=== PATIENT | male | born 2005 | race Caucasian/White ===

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

== ENCOUNTER 2023-06-20 13:43 | Emergency (ER) | payer OTHER, SELFPAY ==
[2023-06-20 13:57] VITALS: BP 120/63; PULSE 93; RESP 16; TEMP 37.3; O2SAT 100
--- NOTE | 2023-06-20 14:06 | ED.GENADULT ---
HPI - General Adult General Chief complaint: Wound/Laceration Stated complaint: Left Hand Pain Time Seen by Provider: 06/20/23 14:00 Source: patient Mode of arrival: ambulatory Limitations: no limitations History of Present Illness HPI narrative: Randell is a 17-year-old male patient presenting to the clinic today for a wound recheck on his right 5th finger. Reports 5 days ago he injured his left 5th finger when he smashed and a trunk. States he did this around 1:00 a.m. in the morning went to [facility]. Three interrupted sutures were placed closing the wound. Tetanus is up-to-date Related Data Home Medications Medication Instructions Recorded Confirmed cephalexin 500 mg capsule 500 mg PO TID 06/20/23 06/20/23 Allergies Allergy/AdvReac Type Severity Reaction Status Date / Time No Known Allergies Allergy Verified 06/20/23 14:08 Review of Systems Review of Systems: Pertinent positives per HPI. Patient denies any fever, chills, rash, headache, visual changes, dizziness, cough, runny nose, sore throat, shortness of breath, chest pain, palpitations, nausea, vomiting, diarrhea, constipation, abdominal pain, or any urinary issues. PMFSH Comments At the time of my signature, I reviewed and agree with the nursing past medical, surgical, social, and family history. There is no relevant family history pertinent to the patient complaint. Exam Narrative: General: Well-developed, well nourished, in no apparent distress Head: Normocephalic, atraumatic. Cardio: Regular rate and rhythm, s1 and s2 normal, no murmur appreciated. Resp: Clear to auscultation bilaterally, no rhonchi, rales, wheezing or rubs. Musculoskeletal: No deformity, 3 sutures to the volar aspect of the right 5th finger, no redness, swelling, or drainage noted, non-tender to palpation, grossly normal range of motion, muscle strength strong and equal, peripheral pulse strong, no edema, no cyanosis, normal gait and station Course Course Emergency Course: Portions of this record may have been created with voice recognition software. Level of Care: Express Care Visit Vital Signs Vital signs: Vital Signs Temperature 37.3 C 06/20/23 13:57 Pulse Rate 93 06/20/23 13:57 Respiratory Rate 16 06/20/23 13:57 Blood Pressure 120/63 06/20/23 13:57 Pulse Oximetry 100 06/20/23 13:57 Oxygen Delivery Room Air 06/20/23 13:57 Temperature 37.3 C 06/20/23 13:57 Pulse Rate 93 06/20/23 13:57 Respiratory Rate 16 06/20/23 13:57 Blood Pressure 120/63 06/20/23 13:57 Pulse Oximetry 100 06/20/23 13:57 Oxygen Delivery Room Air 06/20/23 13:57 Vital signs reviewed Medical Decision Making MDM Narrative Medical decision making narrative: At the time of visit patient is resting comfortably on the exam table. Patient appears to be nontoxic. Wound appears to be well healing, no sign of redness, swelling, erythema, or drainage. Patient is requesting a work note. Supportive measures were discussed with the patient and they voiced understanding discharge instructions and agrees to treatment plan. Return precautions reviewed Differential Diagnosis Differential Diagnosis: Healing wound, infected wound, dehiscence, laceration, encounter for wound check Vital Signs Vital Signs: Vital Signs Temperature 37.3 C 06/20/23 13:57 Pulse Rate 93 06/20/23 13:57 Respiratory Rate 16 06/20/23 13:57 Blood Pressure 120/63 06/20/23 13:57 Pulse Oximetry 100 06/20/23 13:57 Oxygen Delivery Room Air 06/20/23 13:57 Temperature 37.3 C 06/20/23 13:57 Pulse Rate 93 06/20/23 13:57 Respiratory Rate 16 06/20/23 13:57 Blood Pressure 120/63 06/20/23 13:57 Pulse Oximetry 100 06/20/23 13:57 Oxygen Delivery Room Air 06/20/23 13:57 Discharge Plan Discharge Clinical Impression: Encounter for re-check of laceration wound Patient Disposition: Home, Self-Care Condition: Stable Instructions: Anti
== END 2023-06-20 14:15 | disposition home or self-care (01) ==
PROVIDERS: Emergency Provider Nurse Practitioner Family
DX: Z48.00 Encounter for change or removal of nonsurgical wound dressing (principal)
CPT/HCPCS: 99211; G0463

== ENCOUNTER 2024-08-23 23:17 | Emergency (ER) | payer SELFPAY ==
--- NOTE | ~2024-08-23 | XR_ITS ---
Left Knee Technique: AP, lateral, and oblique views were obtained. Clinical History: Pain Findings: No fracture or dislocation is seen. Osseous alignment is anatomic. Joint spaces are preserv ed without degenerative or erosive change. Soft tissues are unremarkable. No joint effusion is seen. Impression: Unremarkable left knee radiographs. Reviewed, dictated and finalized at [facility]. Impression: Unremarkable left knee radiographs.
[2024-08-23 23:19] VITALS: BP 129/69; PULSE 90; RESP 18; TEMP 36.6; O2SAT 100
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
--- OUTSIDE RECORDS SUMMARY | 2024-08-23 23:19 | XMS_ITS | Clinical Summary ---
Author Organization [facility] [employer] Address [address] [place] [address] Care Team Providers Care Cath Lab Manager Name Role Phone Lisa Peters MD Primary Care Provider [phone] Source Comments [facility] [employer],non-owned Affiliates and Associated Physician Practices is amultiple site organization consisting of ambulatory clinics and hospital sitesin [place], [place], [place] and [place]. This disclosure is being madepursuant to the Care Everywhere program and may not contain all information available regarding this patient. Last updated 18.[facility] [employer] Allergies No known active allergies Medications * Be aware that medications may not be up to date on this document. Alwaysverify current medications with the patient. Medication Sig Dispensed Refills Start Date End Date Status methylphenidate CR (CONCERTA) 27 MG tablet Take 27 mg by mouth every morning. Active dexmethylphenidate (FOCALIN) 10 MG tablet Take 10 mg by mouth Every morning and lunchtime. Active ibuprofen (ADVIL;MOTRIN) 40 MG/ML suspensionIndications :Mild to Moderate Pain Take 5 mL by mouth every 6 hours as needed for Pain or Fever. Indications: Mild to Moderate Pain 60 mL 0 03/30/2011 Active Active Problems Problem Noted Date Diagnosed Date Fracture of elbow, lateral condyle, closed 04/13 Injury, other and unspecified, elbow, forearm, a nd wrist 03/30/2011 Social History Tobacco Use Types Packs/Day Years Used Date Smoking Tobacco: Never Assessed Sex and Gender Information Value Date Recorded Sex Assigned at Not on file Gender Identity Not on file Sexual Orientation Not on file Last Filed Vital Signs Vital Sign Reading Time Taken Comments Blood Pressure 117/78 06/15/2023 9:24 PM SALES OFFICE ASSISTANT Pulse 82 06/15/2023 9:24 PM SALES OFFICE ASSISTANT Temperature 37.2 C (98.9 F) 06/15/2023 9:24 PM SALES OFFICE ASSISTANT Respiratory Rate 20 06/15/2023 9:24 PM SALES OFFICE ASSISTANT Oxygen Saturation 99% 06/15/2023 9:24 PM SALES OFFICE ASSISTANT Inhaled Oxygen Concentration - - Weight 49.9 kg (110 lb) 06/15/2023 9:24 PM SALES OFFICE ASSISTANT Height 172.7 cm (5' 8 ) 06/15/2023 9:24 PM SALES OFFICE ASSISTANT Body Mass Index 16.73 06/15/2023 9:24 PM SALES OFFICE ASSISTANT Plan of Treatment Health Maintenance Due Date Last Done Comments HIV SCREENING 08/21/2018 HPV VACCINE (1 - Male 3-dose series) 08/21/2018 MENINGOCOCCAL (Group B) VACC INE SHARED DECISION-MAKING (1 of 2 - Standard) 2019 HEPATITIS C SCREENING 08/17/2021 DTAP/TDAP/TD VACCINES (1 - Tdap) 08/21/2022 HEPATITIS B VACCINE (1 of 3 - 19+ 3-dose series) 08/21/2022 COVID-19 VACCINE (1 - 2023-2 5 season) 2024 INFLUENZA VACCINE (#1) 2024 03/28/2008 DEPRESSION SCREENING 06/06/2024 ZOSTER VACCINE (1 of 2) 08/21/2053 HIB VACCINE Aged Out No longer eligi ble based on patient's age to complete this topic MENINGOCOCCAL GROUPS A/C/Y/W VACCINE Aged Out No longer eligible b ased on patient's age to complete this topic PNEUMOCOCCAL VACCINE Aged Out No long er eligible based on patient's age to complete this topic Care Teams Cath Lab Manager Relationship Specialty Start Date End Date Lisa Peters MD [address] [place] [address] PCP - General 03/30/11
--- OUTSIDE RECORDS SUMMARY | 2024-08-24 00:50 | XMS_ITS | Clinical Summary ---
Author Organization [facility] [employer] Address [address] [place] [address] Care Team Providers Care Barrel Bander Name Role Phone Lisa Peters MD Primary Care Provider [phone] Source Comments [facility] [employer],non-owned Affiliates and Associated Physician Practices is amultiple site organization consisting of ambulatory clinics and hospital sitesin [place], [place], [place] and [place]. This disclosure is being madepursuant to the Care Everywhere program and may not contain all information available regarding this patient. Last updated 18.[facility] [employer] Allergies No known active allergies Medications * [...] Comments Blood Pressure 117/78 06/15/2023 9:24 PM ASSISTANT FOOD SERVICE DIRECTOR Pulse 82 06/15/2023 9:24 PM ASSISTANT FOOD SERVICE DIRECTOR Temperature 37.2 C (98.9 F) 06/15/2023 9:24 PM ASSISTANT FOOD SERVICE DIRECTOR Respiratory Rate 20 06/15/2023 9:24 PM ASSISTANT FOOD SERVICE DIRECTOR Oxygen Saturation 99% 06/15/2023 9:24 PM ASSISTANT FOOD SERVICE DIRECTOR Inhaled Oxygen Concentration - - Weight 49.9 kg (110 lb) 06/15/2023 9:24 PM ASSISTANT FOOD SERVICE DIRECTOR Height 172.7 cm (5' 8 ) 06/15/2023 9:24 PM ASSISTANT FOOD SERVICE DIRECTOR Body Mass Index 16.73 06/15/2023 9:24 PM ASSISTANT FOOD SERVICE DIRECTOR Plan of Treatment Health Maintenance Due Date [...] age to complete this topic Care Teams Barrel Bander Relationship Specialty Start Date End Date Lisa Peters MD [address] [place] [address] PCP - General 03/30/11
== END 2024-08-24 03:33 | disposition left against medical advice (07) ==
PROVIDERS: Emergency Provider Emergency Medicine
DX: M25.562 Pain in left knee (principal)
CPT/HCPCS: 73562; 99199